=== PATIENT | male | born 1980 | race Caucasian/White ===

== ENCOUNTER → 2019-07-30 10:37 | Outpatient (CLI) | payer OTHER, SELFPAY ==
--- NOTE | 2019-07-30 10:47 | RAD_ITS ---
HISTORY: CHRONIC BILAT HIP PAIN X8 YRS, LEFT WORSE THAN RIGHT, NKI ADDITIONAL HISTORY: None provided. TECHNIQUE: AP and lateral views of the right hip, AP and lateral views of the left hip and AP pelvis Number of images including paperwork: 5 COMPARISON: None FINDINGS: BONES: No acute fracture. JOINTS: No subluxation. SOFT TISSUES: No distinct foreign body. Surgical clips project over the scrotum. RAD/Hips B/L min 2 views w/ Pelvis IMPRESSION: No acute osseous abnormality. at 2224 Reported and signed by: Maggie Nair MD Electronically Signed: Maggie Nair MD at 22:24 EST Tel , Service support ,
== END ==
PROVIDERS: Family Provider Family Medicine; PCP Family Medicine; Referring Provider Orthopaedic Surgery; Visit Provider Orthopaedic Surgery
DX: M13.851 Other specified arthritis, right hip (principal); M13.852 Other specified arthritis, left hip
CPT/HCPCS: 73521